=== PATIENT | male | born 1965 | race Two or more races ===

== ENCOUNTER 2023-03-02 17:51 | Emergency (ER) | payer OTHER, SELFPAY ==
--- NOTE | ~2023-03-02 | XR_ITS ---
EXAMINATION: XR SHOULDER, RIGHT CLINICAL INFORMATION: Pain decreased range of motion COMPARISON: None available. TECHNIQUE: Three views of the right shoulder. FINDINGS: No acute visible fracture or dislocation. 3 surgical anchors noted along the glenoid. Joint spaces and alignment are otherwise maintained. Soft tissues are unremarkable. Visualized portions of the right chest are unremarkable. XR/XR shoulder RT min 2V IMPRESSION: 1. No acute visible fracture or dislocation. 2. 3 surgical anchors noted along the glenoid.
[2023-03-02 18:10] VITALS: BP 157/102; PULSE 75; RESP 16; TEMP 37.2; O2SAT 99; BMI 28.6
[2023-03-02 18:12] VITALS: BP 149/101; PULSE 74; RESP 18; O2SAT 98; BMI 28.6
--- NOTE | 2023-03-02 18:53 | ED.EXTPRO ---
HPI - Extremity Problem General Chief complaint: Extremity Injury, Upper Stated complaint: Right shoulder pain ?dislocation Time Seen by Provider: 03/02/23 18:35 Source: patient Mode of arrival: ambulatory Limitations: no limitations History of Present Illness HPI Narrative: 57-year-old male with history of right shoulder surgery many years ago presents with acute shoulder pain. Pain started this morning when he awoke. He describes the pain as a 10/10. Constant. Worse with movement. Does not radiate but he does note that there was some numbness and tingling into his fingers. He denies any immediate injury or trauma. He has had no prior treatment. Related Data Previous Rx's Medication Instructions Recorded cyclobenzaprine 10 mg tablet 10 mg PO TID PRN muscle spasm #10 03/02/23 tabs naproxen 500 mg tablet 500 mg PO BID #20 tabs 03/02/23 Allergies Allergy/AdvReac Type Severity Reaction Status Date / Time No Known Allergies Allergy Verified 03/02/23 18:13 Review of Systems Review of Systems: CONSTITUTIONAL: Denies weight loss, fever and chills. HEENT: Denies changes in vision and hearing. RESPIRATORY: Denies SOB and cough. CV: Denies palpitations no CP. GI: Denies abdominal pain, nausea, vomiting and diarrhea. : Denies dysuria and urinary frequency. MSK: + myalgia and joint pain. SKIN: Denies rash and pruritus. NEUROLOGICAL: Denies headache and syncope. PSYCHIATRIC: Denies recent changes in mood. Denies anxiety and depression. All other ROS are negative unless in HPI [facility] Social History Social History Advance Directives: No Advance Directives Information Provided: No Physical Exam Vital Signs: Vital Signs: Last Vital Signs Temp 99 F 03/02/23 18:10 Pulse 74 03/02/23 18:12 Resp 18 03/02/23 18:12 BP 149/101 H 03/02/23 18:12 Pulse Ox 98 03/02/23 18:12 O2 Del Method Room Air 03/02/23 18:12 BMI result Body Mass Index 28.6 GEN: Well developed, no acute distress, alert, oriented HEENT: Normocephalic, atraumatic, normal external ears, nose appears normal Eyes: Normal to appearance Neck: Supple, no lymphadenopathy Respiratory: Talks in complete sentences, no respiratory distress Extremities: No clubbing cyanosis or edema, neurovascular intact, tenderness over the right anterior shoulder, no deformity, limited range of motion secondary to pain and discomfort. Neurologic: No focal neurologic deficits, cranial nerves 2-12 intact, gait normal Skin: No rash Course Course Course Narrative: The workup is complete. Patient has no evidence of traumatic injury or dislocation. Suspect biceps tendinitis. Will place patient on NSAIDs and muscle relaxers. He can follow-up when he gets back to [place] with an orthopedist. Medical Decision Making Medical Decision Making [facility] Narrative: Patient presents with acute right shoulder pain that is nontraumatic. Exam revealed tenderness over the bicipital groove. Suspect tendonitis. Differential diagnosis includes bursitis, tendinitis, sprain, strain. Will obtain an x-ray provide analgesia and re-evaluate patient Differential Diagnosis Differential Diagnoses: The differential diagnosis associated with the presentation includes (See above) Independent Interpretation I performed an independent interpretation of an: Plain X-Ray (Right shoulder: No acute disease) Radiology Impression Discussion of test interpretation with radiology: I have reviewed the radiologist's reading. Radiologist Impression: XR/XR shoulder RT min 2V IMPRESSION: 1.? No acute visible fracture or dislocation. 2.? 3 surgical anchors noted along the glenoid. ? Dictated By: Nga Magallon MD Signed By: <Electronically signed by Nga Magallon MD in > 03/02/23 [id number] Discharge Plan Discharge Clinical Impression: Biceps tendinitis Patient Disposition: Home, Self-Care Instructions: Tendinitis (ED) Prescriptions: New naproxen 500 mg tablet 500 mg PO BID Qty: 20 0RF cyclobenzaprine 10 mg tablet 10 mg PO TID PRN (Reason: muscle spasm) Qty: 10 0RF Referrals: Physician,Unknown J [Primary Care Provider] - (I recommended follow-up with orthopedist within 1 week)
[2023-03-02] MEDS: Cyclobenzaprine HCl 10 MG TABLET PO (19:24)
[2023-03-02] MEDS: Acetaminophen 325 MG TABLET 975 MG PO (19:24)
[2023-03-02] MEDS: Ketorolac Tromethamine 30 MG/ML VIAL IM (19:25)
== END 2023-03-02 19:32 | disposition home or self-care (01) ==
PROVIDERS: Emergency Provider Emergency Medicine
DX: M75.21 Bicipital tendinitis, right shoulder (principal)
CPT/HCPCS: 73030; 96372; 99283; 99284; J1885